=== PATIENT | female | born 1970 | race Caucasian/White ===

== ENCOUNTER 2017-02-23 09:21 | Emergency (ER) | payer OTHER ==
[~2017-02-23 09:21] MED LIST: FEOSOL325 MG PO; FOLIC ACID1 MG PO; VITAMIN D2000 UNI1 PO
== END 2017-02-23 10:33 | disposition home or self-care (01) ==
LOC: FER 09:21
DX: S93.622A Sprain of tarsometatarsal ligament of left foot, initial encounter (principal); X50.0XXA Overexertion from strenuous movement or load, initial encounter; Y93.01 Activity, walking, marching and hiking; Y93.H9 Activity, other involving exterior property and land maintenance, building and construction; Y92.009 Unspecified place in unspecified non-institutional (private) residence as the place of occurrence of the external cause
CPT/HCPCS: 73630; 99283

== ENCOUNTER 2020-10-02 14:13 | Emergency (ER) | payer OTHER ==
[~2020-10-02 14:13] MED LIST changes: +ATIVAN0.5 MG PO
[2020-10-02 16:41] LABS: BILIRUBIN NEGATIVE (NEGATIVE); BLOOD NEGATIVE Ery/uL (NEGATIVE); CLARITY CLEAR (CLEAR); COLOR YELLOW (YELLOW); GLUCOSE (U) NORMAL (NORMAL); LEUKOCYTES NEGATIVE Leu/uL (NEGATIVE); NITRITE NEGATIVE (NEGATIVE); PROTEIN NEGATIVE (NEGATIVE)
[2020-10-02 16:46] LABS: AMPHETAMINES NEGATIVE (NEGATIVE); BARBITURATES NEGATIVE (NEGATIVE); ECSTASY (MDMA) NEGATIVE (NEGATIVE); MARIJUANA (THC) NEGATIVE (NEGATIVE); METHADONE NEGATIVE (NEGATIVE); OPIATES NEGATIVE (NEGATIVE)
[2020-10-02 16:47] LABS: OXYCODONE NEGATIVE (NEGATIVE)
[2020-10-02 16:58] LABS: BASOPHIL 0.5 % (0-2); EOSINOPHIL 0.8 % (0-5); HCT 45.6 % (37.0-47.0); HGB 15.3 g/dl (12.5-16.0); LYMPHOCYTE 25.9 % (15-48); MCH 29.7 pg (25.0-31.0); MCHC 33.6 g/dL (32.0-36.0); MCV 88.4 fL (78.0-100.0); MONOCYTE 5.2 % (0-12); MPV 9.5 fL (6.0-9.5); NEUTROPHIL 67.2 % (41-80); NRBC 0; PLT 408 K/uL (150-400); RBC 5.16 M/uL (4.20-5.40); RDW 12.6 % (11.5-14.0)
[2020-10-02 17:19] LABS: ALBUMIN 3.7 g/dL (3.4-5.0); BILIRUBIN - TOTAL 0.4 mg/dL (0.2-1.0); C-REACTIVE PROTEIN 0.6 mg/dL (<=0.90); CREATININE 0.5 mg/dL (0.51-0.95); GLOBULIN (CALCULATION) 4.2 g/dL; POTASSIUM 4.5 mmol/L (3.5-5.1); TOTAL PROTEIN 7.9 g/dL (6.4-8.2)
[2020-10-02 17:25] LABS: PRO-BNP 36 pg/mL (<125)
[2020-10-02 17:32] LABS: LACTIC ACID 1.4 mmol/L (0.4-1.9)
[2020-10-02] MEDS ORDERED: AUGMENTIN 875-1 EACH PO (18:18)
== END 2020-10-02 18:41 | disposition home or self-care (01) ==
LOC: FER 14:13
PROVIDERS: Internal Medicine
DX: J02.9 Acute pharyngitis, unspecified (principal); R07.9 Chest pain, unspecified; I10 Essential (primary) hypertension; Z79.899 Other long term (current) drug therapy; Z20.828 Contact with and (suspected) exposure to other viral communicable diseases
CPT/HCPCS: 36415; 71045; 80053; 80305; 81003; 83605; 83880; 84145; 84484; 85025; 85379; 86140; 93005; U0002

== ENCOUNTER 2020-10-08 04:44 | Emergency (ER) | payer OTHER ==
[~2020-10-08 04:44] MED LIST changes: +AUGMENTIN 875-1 EACH PO
== END 2020-10-08 05:31 | disposition home or self-care (01) ==
LOC: FER 04:44
DX: R68.2 Dry mouth, unspecified (principal); T43.015A Adverse effect of tricyclic antidepressants, initial encounter; T43.215A Adverse effect of selective serotonin and norepinephrine reuptake inhibitors, initial encounter; F41.9 Anxiety disorder, unspecified; F32.9 Major depressive disorder, single episode, unspecified; Z79.899 Other long term (current) drug therapy
CPT/HCPCS: 99284

== ENCOUNTER 2020-10-25 01:59 | Emergency (ER) | payer OTHER ==
[2020-10-25 02:44] LABS: BASOPHIL 0.7 % (0-2); EOSINOPHIL 1.9 % (0-5); HCT 44.9 % (37.0-47.0); LYMPHOCYTE 27.9 % (15-48); MCH 29.9 pg (25.0-31.0); MCHC 33.4 g/dL (32.0-36.0); MCV 89.6 fL (78.0-100.0); MONOCYTE 6.5 % (0-12); MPV 9.3 fL (6.0-9.5); NEUTROPHIL 62.7 % (41-80); NRBC 0; PLT 353 K/uL (150-400); RBC 5.01 M/uL (4.20-5.40); RDW 12.7 % (11.5-14.0); WBC 10.6 K/uL (4.0-10.5)
[2020-10-25 03:25] LABS: ALBUMIN 3.8 g/dL (3.4-5.0); BILIRUBIN - TOTAL 0.7 mg/dL (0.2-1.0); BUN/CREAT RATIO (CALC) 23.1 RATIO; CREATININE 0.52 mg/dL (0.51-0.95); GLOBULIN (CALCULATION) 3.9 g/dL; POTASSIUM 4.1 mmol/L (3.5-5.1); TOTAL PROTEIN 7.7 g/dL (6.4-8.2)
[2020-10-25] MEDS ORDERED: ATARAX25 MG PO (03:42)
== END 2020-10-25 03:48 | disposition home or self-care (01) ==
LOC: FER 01:59
PROVIDERS: Emergency Medicine
DX: F41.0 Panic disorder [episodic paroxysmal anxiety] (principal); I10 Essential (primary) hypertension; Z79.899 Other long term (current) drug therapy
CPT/HCPCS: 36415; 71045; 80053; 84443; 84484; 85025; 93005

== ENCOUNTER 2020-11-22 15:26 | Emergency (ER) | payer OTHER ==
[~2020-11-22 15:26] MED LIST changes: +ATARAX25 MG PO
[2020-11-22 17:25] LABS: BASOPHIL 0.7 % (0-2); EOSINOPHIL 1.6 % (0-5); HCT 45.7 % (37.0-47.0); HGB 15.3 g/dl (12.5-16.0); LYMPHOCYTE 38.9 % (15-48); MCH 29.9 pg (25.0-31.0); MCHC 33.5 g/dL (32.0-36.0); MCV 89.4 fL (78.0-100.0); MONOCYTE 6.8 % (0-12); MPV 10.3 fL (6.0-9.5); NEUTROPHIL 51.8 % (41-80); NRBC 0; PLT 377 K/uL (150-400); RBC 5.11 M/uL (4.20-5.40); RDW 12.4 % (11.5-14.0); WBC 9.5 K/uL (4.0-10.5)
[2020-11-22] MEDS ORDERED: PROCTOCREAM-HC30 GM TOP (17:32)
[2020-11-22 17:57] LABS: ALBUMIN 4.4 g/dL (3.4-5.0); BILIRUBIN - TOTAL 0.6 mg/dL (0.2-1.0); BUN/CREAT RATIO (CALC) 23.3 RATIO; CREATININE 0.6 mg/dL (0.51-0.95); POTASSIUM 4.2 mmol/L (3.5-5.1); TOTAL PROTEIN 8.4 g/dL (6.4-8.2)
== END 2020-11-22 17:43 | disposition home or self-care (01) ==
LOC: FER 15:26
PROVIDERS: Emergency Medicine
DX: K64.4 Residual hemorrhoidal skin tags (principal); Z20.822 Contact with and (suspected) exposure to COVID-19
CPT/HCPCS: 36415; 80053; 82550; 85025; 86850; 86900; 86901; 99283; U0002

== ENCOUNTER 2021-01-22 20:54 | Emergency (ER) | payer OTHER ==
[~2021-01-22 20:54] MED LIST changes: +PROCTOCREAM-HC30 GM TOP
[2021-01-22 22:52] LABS: BASOPHIL 0.5 % (0-2); EOSINOPHIL 2.1 % (0-5); HCT 42.6 % (37.0-47.0); HGB 14.7 g/dl (12.5-16.0); MCH 30.5 pg (25.0-31.0); MCHC 34.5 g/dL (32.0-36.0); MCV 88.4 fL (78.0-100.0); MONOCYTE 6.8 % (0-12); MPV 9.9 fL (6.0-9.5); NEUTROPHIL 58.3 % (41-80); NRBC 0; PLT 392 K/uL (150-400); RBC 4.82 M/uL (4.20-5.40); RDW 12.5 % (11.5-14.0); WBC 12.8 K/uL (4.0-10.5)
[2021-01-22 22:57] LABS: INR 1.04 (0.9-1.2); PROTHROMBIN TIME 12.9 SECONDS (11.4-13.6); PTT 26.9 SECONDS (22.2-34.7)
[2021-01-22 23:03] LABS: ALBUMIN 4.2 g/dL (3.4-5.0); BILIRUBIN - TOTAL 0.5 mg/dL (0.2-1.0); CREATININE 0.56 mg/dL (0.51-0.95); POTASSIUM 3.6 mmol/L (3.5-5.1); TOTAL PROTEIN 8.2 g/dL (6.4-8.2)
[2021-01-23] MEDS ORDERED: ESOMEPRAZOLE MA40 MG PO (01:16)
== END 2021-01-23 01:38 | disposition home or self-care (01) ==
LOC: FER 20:54
PROVIDERS: Emergency Medicine
DX: K21.00 Gastro-esophageal reflux disease with esophagitis, without bleeding (principal); R07.89 Other chest pain; R06.02 Shortness of breath; I10 Essential (primary) hypertension
CPT/HCPCS: 36415; 71045; 80053; 83735; 84484; 85025; 85610; 85730; 93005

== ENCOUNTER 2021-05-04 15:43 | Emergency (ER) | payer OTHER ==
[~2021-05-04 15:43] MED LIST changes: +ESOMEPRAZOLE MA40 MG PO
[2021-05-04 17:35] LABS: BASOPHIL 0.1 % (0-2); EOSINOPHIL 0.1 % (0-5); HCT 43.3 % (37.0-47.0); HGB 14.7 g/dl (12.5-16.0); LYMPHOCYTE 20.7 % (15-48); MCH 29.5 pg (25.0-31.0); MCHC 33.9 g/dL (32.0-36.0); MCV 86.9 fL (78.0-100.0); MONOCYTE 6.8 % (0-12); MPV 10.3 fL (6.0-9.5); NEUTROPHIL 71.9 % (41-80); NRBC 0; PLT 209 K/uL (150-400); RBC 4.98 M/uL (4.20-5.40); RDW 12.7 % (11.5-14.0); WBC 7.9 K/uL (4.0-10.5)
[2021-05-04 17:44] LABS: BUN/CREAT RATIO (CALC) 18.4 RATIO; CREATININE 0.49 mg/dL (0.51-0.95); POTASSIUM 4.2 mmol/L (3.5-5.1)
[2021-05-04] MEDS ORDERED: VENTOLIN HFA IN18 GM INH (18:39)
[2021-05-04] MEDS ORDERED: MEDROL 4MG DOSEP4 MG PO (18:39)
== END 2021-05-04 18:49 | disposition home or self-care (01) ==
LOC: FER 15:43
PROVIDERS: Nurse Practitioner Family
DX: U07.1 COVID-19 (principal); I10 Essential (primary) hypertension; E78.5 Hyperlipidemia, unspecified
CPT/HCPCS: 36415; 71045; 80048; 85025; J7030

== ENCOUNTER 2021-12-09 05:56 | Emergency (ER) | payer OTHER ==
[~2021-12-09 05:56] MED LIST changes: +MEDROL 4MG DOSEP4 MG PO; +VENTOLIN HFA IN18 GM INH
[2021-12-09 06:56] LABS: EOSINOPHIL 2.8 % (0-5); HCT 44.3 % (37.0-47.0); HGB 15.3 g/dl (12.5-16.0); LYMPHOCYTE 27.8 % (15-48); MCH 30.1 pg (25.0-31.0); MCHC 34.5 g/dL (32.0-36.0); MCV 87.2 fL (78.0-100.0); MONOCYTE 7.6 % (0-12); MPV 9.8 fL (6.0-9.5); NEUTROPHIL 60.5 % (41-80); NRBC 0; PLT 325 K/uL (150-400); RBC 5.08 M/uL (4.20-5.40); RDW 12.2 % (11.5-14.0); WBC 8.6 K/uL (4.0-10.5)
[2021-12-09 07:03] LABS: INR 1.05 (0.9-1.2); PROTHROMBIN TIME 13.1 SECONDS (11.8-13.4); PTT 26.4 SECONDS (24.4-34.7)
[2021-12-09 07:13] LABS: BILIRUBIN NEGATIVE (NEGATIVE); BLOOD NEGATIVE Ery/uL (NEGATIVE); CLARITY CLEAR (CLEAR); COLOR YELLOW (YELLOW); GLUCOSE (U) NORMAL (NORMAL); LEUKOCYTES 1+ Leu/uL (NEGATIVE); NITRITE NEGATIVE (NEGATIVE); PROTEIN NEGATIVE (NEGATIVE); UROBILINOGEN 0.2 mg/dL (0.2-1.0)
[2021-12-09 07:16] LABS: ECSTASY (MDMA) NEGATIVE (NEGATIVE); MARIJUANA (THC) NEGATIVE (NEGATIVE); METHADONE NEGATIVE (NEGATIVE); OPIATES NEGATIVE (NEGATIVE)
[2021-12-09 07:17] LABS: AMPHETAMINES NEGATIVE (NEGATIVE); BARBITURATES NEGATIVE (NEGATIVE); OXYCODONE NEGATIVE (NEGATIVE)
[2021-12-09 07:20] LABS: URINARY WBC RARE
[2021-12-09 07:26] LABS: ALBUMIN 4.1 g/dL (3.4-5.0); BILIRUBIN - TOTAL 0.5 mg/dL (0.2-1.0); BUN/CREAT RATIO (CALC) 18.8 RATIO; CREATININE 0.48 mg/dL (0.51-0.95); GLOBULIN (CALCULATION) 3.9 g/dL; MAGNESIUM 1.9 mg/dL (1.8-2.4); POTASSIUM 3.9 mmol/L (3.5-5.1)
== END 2021-12-09 08:02 | disposition home or self-care (01) ==
LOC: FER 05:56
PROVIDERS: Emergency Medicine
DX: J06.9 Acute upper respiratory infection, unspecified (principal); R06.4 Hyperventilation; I10 Essential (primary) hypertension; E78.5 Hyperlipidemia, unspecified; Z20.822 Contact with and (suspected) exposure to COVID-19; Z79.899 Other long term (current) drug therapy
CPT/HCPCS: 36415; 36600; 71045; 80053; 80305; 81001; 82803; 83735; 83880; 84145; 84443; 84484; 85025; 85610; 85730; 93005; J2060; U0002